=== PATIENT | male | born 1975 | race Two or more races ===

== ENCOUNTER 2023-04-02 04:01 | Emergency (ER) | payer MEDICAID ==
[~2023-04-02] VITALS: Ht 167.6 cm; Wt 106.4 kg
[2023-04-02 06:33] VITALS: BP 141/101; PULSE 61; RESP 16; TEMP 97.5; O2SAT 97
[2023-04-02] MEDS ORDERED: HYDROcodone-ACET 5/325MG TAB PO ONE (06:45)
[2023-04-02] MEDS ORDERED: KETOROLAC TROMETH 60MG/2ML VIAL IM ONE (06:45)
[2023-04-02] MEDS ORDERED: IBUP-1456 PO (08:04)
[2023-04-02] MEDS ORDERED: METH-1182 PO (08:04)
== END 2023-04-02 08:11 | disposition home or self-care (01) ==
LOC: ER 04:01 → EDBD 04:01 → ER 08:09
DX: S39.012A Strain of muscle, fascia and tendon of lower back, initial encounter (principal); M54.41 Lumbago with sciatica, right side; G89.29 Other chronic pain; Z79.1 Long term (current) use of non-steroidal anti-inflammatories (NSAID); Z79.899 Other long term (current) drug therapy; X50.1XXA Overexertion from prolonged static or awkward postures, initial encounter; Y93.89 Activity, other specified; Y92.89 Other specified places as the place of occurrence of the external cause; Y99.8 Other external cause status
CPT/HCPCS: 72100; 96372; 99283; J1885